=== PATIENT | male | born 1960 | race Caucasian/White ===

== ENCOUNTER 2023-07-25 17:46 | Outpatient (CLI) | payer OTHER, SELFPAY ==
--- NOTE | 2023-07-25 | XR_ITS ---
Patient: SAMIR LANTIGUA Facility:?[facility] Patient ID:?[id number] Site Patient ID:?[id number]. Site :?[id number] Study:?XRay-Head QIANA-07/25/2023 6:01:45 PM Ordering Physician:WICHO Final Report: INDICATION: Possible metal in orbits. Pre MRI. TECHNIQUE: Orbits one view. COMPARISON: None. FINDINGS: No metallic foreign body about the orbits. Multiple dental restorations. Osseous structures as imaged are otherwise unremarkable. Possible right carotid calcifications. Soft tissues elsewhere as imaged are unremarkable. IMPRESSION: No metallic foreign body in the orbits. Dictated by Abe Aleman MD @ 07/25/2023 6:21:47 PM Signed by:?Abe Aleman MD @07/25/2023 6:21:47 PM (Electronic Signature)
--- OUTSIDE RECORDS SUMMARY | 2023-07-25 17:48 | XMS_ITS | Clinical Summary ---
Author Name Unknown Organization [facility] Address [address] [place] [address] Phone [email or web address] Care Team Providers Care Dynamotor Repairer Name Role Phone Jean-Pierre Freeman MD Primary Care Provider [phone] Allergies Active Allergy Reactions Criticality Noted Date Comments Penicillins 03/09/2008 Medications Medication Sig Dispensed Refills Start Date End Date Status olmesartan (BENICAR) 20 MG tabletIndication s:Hypertension, unspecified type Take 1 tablet (20 mg total) by mouth 1 (one) time each day. for blood pressure 90 tablet 06/22/2023 Active tadalafil (CIALIS) 20 MG tabletIndication s:Erectile dysfunction, unspecified erectile dysfunction type Take 0.5 tablets (10 mg total) by mouth 1 (one) time each day if needed for erectile dysfunction. 30 tablet 06/22/2023 Active cholecalciferol (VITAMIN D-3) 250 MCG (72181 UT) capsule Take 10,000 Units by mouth 1 (one) time each day. Take one every other day. Active tadalafil (CIALIS) 20 MG tabletIndication s:Erectile dysfunction, unspecified erectile dysfunction type Take 1 tablet (20 mg total) by mouth 1 (one) time each day if needed for erectile dysfunction. 60 tablet 07/20/2023 4 Active Clomid 50 MG tablet TAKE ONE TABLET BY MOUTH EVERY 2 DAYS FOR CENTRAL HYPOGONADISM 03/18/2022 4 Discontinued tadalafil (CIALIS) 20 MG tabletIndication s:Erectile dysfunction, unspecified erectile dysfunction type Take 1 tablet (20 mg total) by mouth 1 (one) time each day if needed for erectile dysfunction. 30 tablet 07/20/2023 4 Discontinued Active Problems Problem Noted Date Diagnosed Date Class 2 obesity due to exces s calories without serious comorbidity with body mass index (BMI) of 37.0 to 37.9 in adult 06/22/2023 Erectile dysfunction 06/22/2023 Hypogonadism male 06/22/2023 Hypertension 06/22/2023 Ventral hernia without obstruction or gangrene 0 06/22/2023 Encounters Date Type Department Care Team Description 07/20/2023 11:00 AM CDT Telemedicine [employer] [facility] [address] [place] [phone] Beverly Hargrove NP Erectile dysfunction, unspecified erectile dysfunction type (Primary Dx) 07/19/2023 10:15 AM CDT Office Visit [employer] [facility] [address] [place] [phone] Nicole Reyes, OD Combined forms of age-related cataract of both eyes (Primary Dx); Hyperopia of both eyes with astigmatism and presbyopia; Dry eyes 06/26/2023 Orders Only [employer] [facility] [address] [place] [phone] Beverly Hargrove NP 06/22/2023 8:00 AM CDT Office Visit [employer] [facility] [address] [place] [address] Beverly Hargrove NP Encounter for preventative adult health care examination (Primary Dx); Ventral hernia without obstruction or gangrene; Hypertension, unspecified type; Hypogonadism male; Erectile dysfunction, unspecified erectile dysfunction type; Class 2 obesity due to excess calories without serious comorbidity with body mass index (BMI) of 37.0 to 37.9 in adult; Alcohol abuse from Last 3 Months Immunizations Name Administration Dates Next Due Tdap (ADACEL BOOSTRIX) (CVX-[id number]) 12/15/2018,08/18 Family History Medical History Relation Name Comments Cataracts Brother Lauro Other Daughter 1 Kristyn pardo of f allow as Lung disease Daughter 2 Crystal Obesity Daughter 2 Crystal Retinopathy of prematurity Daughter 2 Crystal p oor vision, hx of detatched retina. born at home 3 months early Lung cancer Father Hypertension Maternal Grandfather Obesity Maternal Grandfather Sudden Maternal Grandfather ALS Maternal Grandmother Hypertension Mother Ovarian cancer Mother Obesity Paternal Grandmother Obesity Sister 1 Baylee No Known Problems Sister 2 Tracy No Known Problems Son Александр Glaucoma Neg Hx Macular degeneration Neg Hx Relation Name Status Comments Brother Lauro Alive Older Daughter 1 Kristyn Alive Daughter 2 Crystal Alive Daughter 3 Beatrice Alive Father (Age 67) Maternal Grandfather (Age 66) Maternal Grandmother (Age 75) Mother Paternal Grandfather (Age 40s) Paternal Grandmother (Age 80s) Sister 1 Baylee Alive Older Sister 2 Tracy Alive younger Son Александр Alive Social History Tobacco Use Types Packs/Day Years Used Date Smoking Tobacco: Never Smokeless Tobacco: Never Tobacco Cessation:Counseling Given: Not Answered Alcohol Use Standard Drinks/Week Comments Yes 0 (1 standard drink = 0.6 oz pur e alcohol) 20 drinks per week Alcohol Use Answer Date Recorded Alcohol Use Status Yes 06/22/2023 Depression Answer Date Recorded PHQ Total Score 0 06/22/2023 Sex and Gender Information Value Date Recorded Sex Assigned at Not on file Gender Identity Not on file Sexual Orientation Not on file Last Filed Vital Signs Vital Sign Reading Time Taken Comments Blood Pressure 135/89 06/22/2023 7:53 AM CDT Pulse 69 06/22/2023 7:53 AM CDT Temperature 36.5 ??C (97.7 ??F) 06/22/2023 7:53 AM CD T Respiratory Rate 14 06/22/2023 7:53 AM CDT Oxygen Saturation 95% 06/22/2023 7:53 AM CDT Inhaled Oxygen Concentration - - Weight 110 kg (242 lb) 06/22/2023 7:53 AM CDT Height 170.2 cm (5' 7) 06/22/2023 7:53 AM CDT Body Mass Index 37.9 06/22/2023 7:53 AM CDT Plan of Treatment Health Maintenance Due Date Last Done Comments Influenza Immunization (Season Ended) 2023 Dental Cleaning/Exam 04/05/2024 Postpon ed from 1960 (Awaiting appt) Colorectal Cancer Screening 06/19/2024 06/19/2021 Annual Preventive Exam 06/21/2024 4, 06/22/2023 Covid-19 Immunization (4 - season) 2024 03/04/2021, 07/14/2020, 06/16/2020 Postponed from 11/17/2022 (Member Refused) RSV Immunization >= 60 yrs old (1 - 1-dose 60+ series) 06/21/2024 Postponed fr om 2020 (Member Refused) Zoster Immunization (1 of 2) 06/21/2024 Postponed from 2010 (Member Refused) Tetanus (Tdap or Td) Immunization 12/15/2028 12/15/2018, 09/05/2017 HIV Screening Addressed 09/05/2017 Overridden obdulio h the intention of not completing the topic Hepatitis C Screening Completed 09/05/2017 HIB Immunization Aged Out No longer e ligible based on patient's age to complete this topic HPV Immunization Aged Out No longer e ligible based on patient's age to complete this topic Hep B Infection Screening - Surface Antigen Discontinued Hepatitis A Immunization Aged Out No longer eligible based on patient's age to complete this topic Hepatitis B Immunization Aged Out No longer eligible based on patient's age to complete this topic Pneumococcal: Ped (0 to 5 Yrs) and At-Risk Member (6 to 64 Yrs) Aged Out No longer eligible b ased on patient's age to complete this topic Polio Immunization Aged Out No longer eligible based on patient's age to complete this topic Procedures Procedure Name Priority Date/Time Associated Diagnosis Comments CORTISOL AM Routine 06/22/2023 8:34 AM CDT Hypogonadism male PROLACTIN Routine 06/22/2023 8:34 AM CDT Hypogonadism male FSH AND LH, SERUM Routine 06/22/2023 8:3 4 AM CDT Hypogonadism male TESTOSTERONE TOTAL MALE Routine 06/22/2023 8:34 AM CDT Hypogonadism male VITAMIN D 25 HYDROXY TOTAL Routine 06/22/2023 8:34 AM CDT Encounter for preventative adult health care examination HEMOGLOBIN A1C Routine 06/22/2023 8:34 AM CDT Encounter for preventative adult health care examination COMPREHENSIVE METABOLIC PANEL Routine 06/22/2023 8:34 AM CDT Encounter for preventative adult health care examination CBC Routine 06/22/2023 8:34 AM CDT Encounter for preventative adult health care examination PSA Routine 06/22/2023 8:34 AM CDT Encounter for preventative adult health care examination LIPID PANEL Routine 06/22/2023 8:34 AM CDT Encounter for preventative adult health care examination from Last 3 Months Results * Testosterone Total Male - [facility]/DLS (88085) (06/22/2023 8:34 AM CDT) Testosterone 428 250 - 827 ng/dL [facility] Blood (Blood, Venous) 06/22/2023 8:34 AM CDT 06/23/2023 4:16 AM CDT Beverly Hargrove NP LAB BLOOD ORDERABLES Performing Organization Address City/[facility]/ZIP Co de Phone Number [facility] [address] [place] [address] * FSH and LH, Serum (98049,32720) (06/22/2023 8:34 AM CDT) Follicle Stimulating Hormone 2.5 1.4 - 12.8 mIU/mL [facility] Luteinizing Hormone 4.1 1.6 - 15.2 mIU/mL [facility] Blood (Blood, Venous) 06/22/2023 8:34 AM CDT 06/23/2023 4:16 AM CDT Beverly Hargrove NP LAB BLOOD ORDERABLES [facility] [address] [place] [address] * Cortisol AM (88877) (06/22/2023 8:34 AM CDT) Pathologist [facility] Cortisol - AM 18.7 mcg/dL [facility] Comment: Reference Range 8 a.m. (7-9 a.m.) Specimen: 4.0-22.0 Blood (Blood, Venous) 06/22/2023 8:34 AM CDT 06/23/2023 4:16 AM CDT Beverly Hargrove LOG TRUCK DRIVER LAB BLOOD ORDERABLES [facility] [address] [place] [address] * Vitamin D 25-Hydroxy Total (32438) ([facility] 84924,Katie 647366,DLS 6556) (06/22/2023 8:34 AM CDT) Pathologist [facility] Vit D, 25-Hydroxy 69 30 - 100 ng/mL [facility] Comment: Vitamin D Status ? 25-OH Vitamin D: Deficiency: ?<20 ng/mL Insufficiency: ? 20 - 29 ng/mL Optimal: ? > or = 30 ng/mL For 25-OH Vitamin D testing on patients on D2-supplementation and patients for whom quantitation of D2 and D3 fractions is required, the QuestAssureD() 25-OH VIT D, (D2,D3), LC/MS/MS is recommended: order code 81073 (patients >2yrs). See Note 1 Note 1 For additional information, please refer to http://education.Cloud Engines/faq/XPQ440 (This link is being provided for informational/ educational purposes only.) Blood (Blood, Venous) 06/22/2023 8:34 AM CDT 06/23/2023 4:16 AM CDT Beverly Desirnieves LOG TRUCK DRIVER LAB BLOOD ORDERABLES Performing Organization Address City/[facility] Co de Phone Number [facility] [address] [place] [address] * Prolactin, Serum (83656) (06/22/2023 8:34 AM CDT) Prolactin 9.8 2.0 - 18.0 ng/mL [facility] Blood (Blood, Venous) 06/22/2023 8:34 AM CDT 06/23/2023 4:16 AM CDT Beverly Desirnieves LOG TRUCK DRIVER LAB BLOOD ORDERABLES Performing Organization Address [facility] Co de Phone Number [facility] [address] [place] [address] * CBC Complete blood count without diff (36220) (06/22/2023 8:34 AM CDT) Auto WBC 4.3 3.8 - 10.8 Thousand/uL [facility] RBC 5.11 4.20 - 5.80 Million/uL [facility] Hemoglobin 15.1 13.2 - 17.1 g/dL [facility] Hematocrit 44.7 38.5 - 50.0 % [facility] MCV 87.5 80.0 - 100.0 fL [facility] MCH 29.5 27.0 - 33.0 pg [facility] MCHC 33.8 32.0 - 36.0 g/dL [facility] RDW 13.3 11.0 - 15.0 % [facility] Platelets 253 140 - 400 Thousand/uL [facility] MPV 10.3 7.5 - 12.5 fL [facility] Blood (Blood, Venous) 06/22/2023 8:34 AM CDT 06/23/2023 4:16 AM CDT Beverly Delvin LOG TRUCK DRIVER LAB BLOOD ORDERABLES Performing Organization Address [facility] de Phone Number JACEY [facility] [address] [place] [address] * PSA Prostate Specific Antigen Total (57658) (06/22/2023 8:34 AM CDT) PSA 0.50 < OR = 4.00 ng/mL [facility] Comment: The total PSA value from this assay system is standardized against the WHO standard. The test result will be approximately 20% lower when compared to the equimolar-standardized total PSA ([place]). Comparison of serial PSA results should be interpreted with this fact in mind. This test was performed using the Siemens chemiluminescent method. Values obtained from different assay methods cannot be used interchangeably. PSA levels, regardless of value, should not be interpreted as absolute evidence of the presence or absence of disease. Blood (Blood, Venous) 06/22/2023 8:34 AM CDT 06/23/2023 4:16 AM CDT Beverly Delvin CLARK LAB BLOOD ORDERABLES Performing Organization Address [facility] de Phone Number JACEY [facility] [address] [place] [address] * Hgb A1C Hemoglobin Glycosylated (44059) (06/22/2023 8:34 AM CDT) Hemoglobin A1C 5.4 <5.7 % of total Hgb [facility] Comment: For the purpose of screening for the presence of diabetes: <5.7% ? Consistent with the absence of diabetes 5.7-6.4% ?Consistent with increased risk for diabetes ?(prediabetes) > or =6.5% ??Consistent with diabetes This assay result is consistent with a decreased risk of diabetes. Currently, no consensus exists regarding use of hemoglobin A1c for diagnosis of diabetes in children. According to [place] Diabetes Association (ADA) guidelines, hemoglobin A1c <7.0% represents optimal control in non- diabetic patients. Different metrics may apply to specific patient populations. Standards of Medical Care in Diabetes(ADA). ? This test was performed on the Ros abel c503 platform. Effective 05/23/23, a change in test platforms from the Caba Sand Buffer to the Ros abel c503 may have shifted HbA1c results compared to historical results. Based on laboratory validation testing conducted at [facility], the Ros platform relative to the Caba platform had an average increase in HbA1c value of < or = 0.3%. This difference is within accepted variability established by the National Glycohemoglobin Standardization Program. Note that not all individuals will have had a shift in their results and direct comparisons between historical and current results for testing conducted on different platforms is not recommended. Blood (Blood, Venous) 06/22/2023 8:34 AM CDT 06/23/2023 4:16 AM CDT Beverly Hargrove NP LAB BLOOD ORDERABLES [facility] [address] [place] [address] * (ABNORMAL) Lipid panel (72871) (06/22/2023 8:34 AM CDT) [employer] Signature Cholesterol 252(H) <200 mg/dL [facility] Total HDL-C Direct 74 > OR = 40 mg/dL [facility] Triglycerides 112 <150 mg/dL [facility] LDL Calculated 155(H) mg/dL (calc) [facility] Comment: Reference range: <100 Desirable range <100 mg/dL for primary prevention; ?? <70 mg/dL for patients with CHD or diabetic patients with > or = 2 CHD risk factors. LDL-C is now calculated using the Joanne calculation, which is a validated novel method providing better accuracy than the Friedewald equation in the estimation of LDL-C. Moose ORTIZ et al. ROBERTO. 2013;310(19): 1439-4177 (http://education.Pura Naturals.MValve technologies/faq/MVR663) Chol/HDL Ratio 3.4 <5.0 (calc) [facility] Non HDL Chol. (LDL+VLDL) 178(H) <130 mg/dL (calc) [facility] Comment: For patients with diabetes plus 1 major ASCVD risk factor, treating to a non-HDL-C goal of <100 mg/dL (LDL-C of <70 mg/dL) is considered a therapeutic option. Blood (Blood, Venous) 06/22/2023 8:34 AM CDT 06/23/2023 4:16 AM CDT Beverly Hargrove LOG TRUCK DRIVER LAB BLOOD ORDERABLES [facility] [address] [place] [address] * (ABNORMAL) Comprehensive metabolic panel [facility] (83890) (06/22/2023 8:34 AM CDT) [facility] Glucose 99 65 - 99 mg/dL [facility] Comment: ? Fasting reference interval BUN 14 7 - 25 mg/dL [facility] Creatinine 1.07 0.70 - 1.35 mg/dL [facility] eGFR 78 > OR = 60 mL/min/1. 73m2 [facility] BUN/Creatinine Ratio SEE NOTE: 6 22 (calc) [facility] Comment: ?? Not Reported: BUN and Creatinine are within ?? reference range. ? Sodium 136 135 - 146 mmol/L [facility] Potassium 4.2 3.5 - 5.3 mmol/L [facility] Chloride 99 98 - 110 mmol/L [facility] CO2 30 20 - 32 mmol/L [facility] Calcium 10.3 8.6 - 10.3 mg/dL [facility] Total Protein 7.2 6.1 - 8.1 g/dL [facility] Albumin 4.7 3.6 - 5.1 g/dL [facility] Globulin, Total 2.5 1.9 - 3.7 g/dL (calc) [facility] A/G Ratio 1.9 1.0 - 2.5 (calc) [facility] Total Bilirubin 0.6 0.2 - 1.2 mg/dL [facility] Alkaline Phosphatase 32(L) 35 - 144 U/L [facility] AST 34 10 - 35 U/L [facility] ALT (SGPT) 21 9 - 46 U/L [facility] Blood (Blood, Venous) 06/22/2023 8:34 AM CDT 06/23/2023 4:16 AM CDT Beverly Hargrove LOG TRUCK DRIVER LAB BLOOD ORDERABLES [facility] [address] [place] [address] from Last 3 Months Care Teams Dynamotor Repairer Relationship Specialty Start Date End Date Jean-Pierre Freeman MD [address] [place] [phone] PCP - General Family Medicine 07/19/23
--- OUTSIDE RECORDS SUMMARY | 2023-07-25 17:48 | XMS_ITS | Encounter Summary ---
Author Name Unknown Organization [facility] Address [address] [place], [place] [id number] Phone [email or web address] Care Team Providers Care Naval Aircrewman Mechanical Name Role Phone Jean-Pierre Freeman MD Primary Care Provider [phone] Reason for Referral * Consultation (Routine) - Closed Specialty Diagnoses / Procedures Referred By Marlene pickett Referred To Contact Optometry / Vision Diagnoses Hyperopia of both eyes with astigmatism and presbyopia Procedures Vendor Referral to Optometry Nicole Reyes, OD [address] [place] [address] Nicole Reyes, OD [address] [place] [address] Referral ID Status Reason Start Date Expiration Date V isits Requested Visits Authorized [id number] Closed Consult & Treat 07/19/2023 01/15/2024 1 1 Reason for Visit * Reason Comments Eye Exam Encounter Details Date Type Department Care Team (Late st Contact Info) Description 07/19/2023 10:15 AM CDT [facility] [address] [place] [address] Nicole Reyes, OD [address] [place] [address] Combined forms of age-related cataract of both eyes (Primary Dx); Hyperopia of both eyes with astigmatism and presbyopia; Dry eyes Social History Tobacco Use Types Packs/Day Years Used Date Smoking Tobacco: Never Smokeless Tobacco: Never Alcohol Use Standard Drinks/Week Comments Yes 0 (1 standard drink = 0.6 oz pur e alcohol) 20 drinks per week Alcohol Use Answer Date Recorded Alcohol Use Status Yes 06/22/2023 Depression Answer Date Recorded PHQ Total Score 0 06/22/2023 Sex and Gender Information Value Date Recorded Sex Assigned at Not on file Gender Identity Not on file Sexual Orientation Not on file documented as of this encounter Progress Notes * Nicole Reyes, OD - 07/19/2023 10:15 AM CDT Subjective: Venkata Huynh is a 63 y.o. male. Chief Complaint Eye Exam HPI Eye Exam In both eyes. Comments Mild blur at distance, with glasses, x 1 year. Scratchy eyes, intermittent, it has been happening for a long time, more ioften in the morning. Last edited by Nicole Reyes, BRIANNA on 07/19/2023 10:35 AM. ROS Positive for: Eyes Negative for: Constitutional, Gastrointestinal, Neurological, Skin, Genitourinary, Musculoskeletal,HENT, Endocrine, Cardiovascular, Respiratory, Psychiatric, Allergic/Imm, Heme/Lymph Last edited by Nicole Reyes, BRIANNA on 07/19/2023 10:35 AM. Visual Acuity Visual Acuity (Snellen - Linear) Right Left Dist cc 20/20 20/30 -2 Correction: Glasses Pupils Pupils Pupils APD Right PERRL None Left PERRL None Extraocular Movement Extraocular Movement Right Left Full, Ortho Full, Ortho Confrontational Visual Marti Visual Marti (Counting fingers) Left Right Full Full Tonometry Tonometry (Applanation, 10:33 AM) Right Left Pressure 18 18 Wearing Rx Wearing Rx Sphere Cylinder [place] Add Right +1.50 -0.75 095 +2.50 Left +1.25 -0.50 050 +2.50 Manifest Refraction Manifest Refraction Sphere Cylinder [place] Dist VA Add Near VA Right +1.75 -0.50 115 20/20-2 +2.50 J1+ Left +1.50 -0.50 045 20/25 +2.50 J1+ Eyeglass Final Rx Eyeglass Final Rx Sphere Cylinder [place] Dist VA Add Near VA Right +1.75 -0.50 115 20/20-2 +2.50 J1+ Left +1.50 -0.50 045 20/25 +2.50 J1+ Expiration Date: 07/18/2025 Dilation Dilation Deferred DFE, performed optomap today Main Ophthalmology Exam External Exam Right Left External Normal Normal Slit Lamp Exam Right Left Lids/Lashes Normal Normal Conjunctiva/Sclera White and quiet White and quiet Cornea Clear Clear Anterior Chamber Deep and quiet Deep and quiet Iris Round and reactive Round and reactive Lens 2+ Cortical cataract, 1+ Nuclear sclerosis 2+ Cortical cataract, 1+ Nuclear sclerosis Anterior Vitreous Normal Normal Fundus Exam Right Left Disc Normal Normal C/D Ratio 0.3 0.3 Macula Flat and Intact Flat and Intact Vessels Normal Normal Periphery Normal Normal <div [email or web address]></div> Mack was seen today for eye exam. Diagnoses and all orders for this visit: Combined forms of age-related cataract of both eyes (Primary) Hyperopia of both eyes with astigmatism and presbyopia Dry eyes Ed on findings and nature of cataracts. Based on mild nature of cataract, but discussed symptoms ofcataracts. Continue to monitor annually. Ed pt on all exam findings, nature of findings. Discussed adaptation to Rx. Glasses Rx released forfull time wear. RTC 1 year CEE. Ed pt on all exam findings, nature of findings. Recommend use of artificial tears as needed in botheyes. Recommend Systane Ultra. Monitor, RTC 1 year CEE, or sooner as needed. Return in about 1 year (around 07/18/2024), or if symptoms worsen or fail to improve, for Eye exam. Nicole Reyes OD documented in this encounter Plan of Treatment Not on file documented as of this encounter Visit Diagnoses Diagnosis Combined forms of age-related cataract of both eyes- Primary Hyperopia of both eyes with astigmatism and presbyopia Dry eyes Unspecified tear film insufficiency documented in this encounter Care Teams [employer] Mechanical Relationship Specialty Start Date End Date Jean-Pierre Freeman MD [address] [place] [address] PCP - General Family Medicine 07/19/23 documented as of this encounter
--- OUTSIDE RECORDS SUMMARY | 2023-07-25 17:48 | XMS_ITS | Encounter Summary ---
Author Name Unknown Organization [facility] Address [address] [place] [address] Phone [email or web address] Care Team Providers Care Maintenance Planner Name Role Phone Golden Pfeiffer MD Primary Care Provider Darvina ble Encounter Details Date Type Department Care Team (Late st Contact Info) Description 06/26/2023 Orders Only [employer] [facility] [place] [address] [facility] [address] [place] [address] Beverly Hargrove, CREATIVE SERVICES COORDINATOR [address] [place] [address] Social History Tobacco Use Types Packs/Day Years [...] on file documented as of this encounter Plan of Treatment Not on file documented as of this encounter Visit Diagnoses Not on filedocumented in this encounter Care Teams Maintenance Planner Relationship Specialty [place] [address] PCP - General General Surgery 06/08/23 07/18/23 documented as of this encounter
--- OUTSIDE RECORDS SUMMARY | 2023-07-25 17:48 | XMS_ITS | Encounter Summary ---
Author Name Unknown Organization [facility] Address [address] [place], [place] [id number] Phone [email or web address] Care Team Providers Care Elementary Special Education Teacher Name Role Phone Golden Pfeiffer MD Primary Care Provider Unavaila ble Reason for Visit * Reason Comments Annual Physical Exam Encounter Details Date Type Department Care Team (Late st Contact Info) Description 06/22/2023 8:00 AM CDT Office Visit [facility] [place] [facility] [place] [address] [place] [address] Beverly Hargrove NP [address] [place] [address] Encounter for preventative adult health care examination (Primary Dx); Ventral hernia without obstruction or gangrene; Hypertension, unspecified type; Hypogonadism male; Erectile dysfunction, unspecified erectile dysfunction type; Class 2 obesity due to excess calories without serious comorbidity with body mass index (BMI) of 37.0 to 37.9 in adult; Alcohol abuse Social History Tobacco Use Types Packs/Day Years [...] on file documented as of this encounter Last Filed Vital Signs Vital Sign Reading [...] Mass Index 37.9 06/22/2023 7:53 AM CDT documented in this encounter Patient Instructions * Patient Instructions* Beverly Hargrove NP - 06/22/2023 8:00 AM CDT Cut back on daily alcohol, this is likely related to weight gain. And if you cut back this will help you lose weight. Return in 3 months for med check Do phone visit in a month if cialis 10 mg before intercourse is not helping documented in this encounter Progress Notes * Beverly Hargrove NP - 06/22/2023 8:00 AM CDT Subjective Venkata Huynh is a 63 y.o. male and is here for a comprehensive physical exam. The patient reports no problems. Vit D: takes 10,000 maybe every other day Nutrition: normal diet. Grilling will add salt. Eats a lot of cheese Exercise: not as much as he wants. Usually walks when he can. Is building a shed right now. Smoking: no Alcohol: daily usually 4-5 beers Colon screening: did cologuard in the past Do you take any herbs or supplements that were not prescribed by a doctor? yes Are you taking calcium supplements? no Are you taking aspirin daily? no History: Date last PSA: 1.5 year ago No urinary issues The following portions of the patient's chart were reviewed in this encounter and updated as appropriate: Tobacco Allergies Meds Problems Med Hx Surg Hx Fam Hx Review of Systems Do you have pain that bothers you in your daily life? yes Joints, knows he has arthritis in his joints. Should pain Pertinent items are noted in HPI.. Objective Visit Vitals BP 135/89 (BP Location: Right arm, Patient Position: Sitting, BP Cuff Size: Large adult) Pulse 69 Temp 97.7 ??F Resp 14 Ht 5' 7 Wt 242 lb SpO2 95% BMI 37.90 kg/m?? Smoking Status Never BSA 2.28 m?? General Appearance: Alert, cooperative, no distress, appears stated age Head: Normocephalic, without obvious abnormality, atraumatic Eyes: PERRL, conjunctiva/corneas clear Ears: Normal TM's and external ear canals, both ears Nose: Nares normal, septum midline, mucosa normal Throat: Lips, mucosa, and tongue normal; teeth and gums normal Neck: Supple, symmetrical, trachea midline, no adenopathy; thyroid: No enlargement/tenderness/nodules Lungs: Clear to auscultation bilaterally, respirations unlabored Chest wall: No tenderness or deformity Heart: Regular rate and rhythm, S1 and S2 normal, no murmur, rub or gallop Abdomen: Soft, non-tender, bowel sounds active all four quadrants, no masses, no organomegaly. Vental hernia noted, non-tender Extremities: Extremities normal, atraumatic, no cyanosis or edema Skin: Skin color, texture, turgor normal, no rashes or lesions Lymph nodes: Cervical, supraclavicular, and axillary nodes normal Neurologic: CNII-XII intact. Normal strength, sensation . Assessment/Plan Healthy male exam. 1. Encounter for preventative adult health care examination Labs pending, no concerns today. Does cologuard, last done 1-1.5 years ago. - Lipid panel (84154) - PSA Prostate Specific Antigen Total (78487) - CBC Complete blood count without diff (92475) - Comprehensive metabolic panel CMP (09725) - Hgb A1C Hemoglobin Glycosylated (09330) - Vitamin D 25-Hydroxy Total (76603) (Quest 05075,Katie [id number],DLS 6556) 2. Ventral hernia without obstruction or gangrene Noted today during physical, he was not aware of it. No pain. Offered PT to help with core exercises. He declined 3. Hypertension, unspecified type BP is okay, monitor for now, return in 3 months for med check. Refill given today - olmesartan (BENICAR) 20 MG tablet; Take 1 tablet (20 mg total) by mouth 1 (one) time each day. for blood pressure Dispense: 90 tablet; Refill: 0 4. Hypogonadism male Would like to get back on clomid, will check labs today to determine if that is appropriate or not - Testosterone Total Male - Quest/DLS (79885) - FSH and LH, Serum (26777,72223) - Prolactin, Serum (82434) - Cortisol AM (90139) 5. Erectile dysfunction, unspecified erectile dysfunction type Didn't feel 5 mg daily was helping. Will trial 10 mg before intercourse. If not working make phone visit in a month - tadalafil (CIALIS) 20 MG tablet; Take 0.5 tablets (10 mg total) by mouth 1 (one) time each day ifneeded for erectile dysfunction. Dispense: 30 tablet; Refill: 0 6. Class 2 obesity due to excess calories without serious comorbidity with body mass index (BMI) of37.0 to 37.9 in adult Declined obesity help via [facility]. He states he knows what he needs to do 7. Alcohol abuse Drinks daily, 4-5 beers a day, needs to work on cutting back, this is likely related to weight gain 1. As above 2. Patient Counseling: --Nutrition: Stressed importance of moderation in sodium/caffeine intake, saturated fat and cholesterol, caloric balance, sufficient intake of fresh fruits, vegetables, fiber, calcium, iron, and 1 mgof folate supplement per day (for females capable of ). --Exercise: Stressed the importance of regular exercise. --Injury prevention: Discussed safety belts, safety helmets, smoke detector, smoking near bedding or upholstery. --Dental health: Discussed importance of regular tooth brushing, flossing, and dental visits. --Immunizations reviewed. --Discussed benefits of screening colonoscopy-he does cologuard. --After hours service discussed with patient 3. Discussed the patient's BMI with him. The BMI above average, declines referral 4. Follow up 3 months . Best Practice Advisory Action: BMI Counseling Follow-up plan has been discussed and documented for this member. * Uziel Mccauley MA - 06/22/2023 8:00 AM CDT Venkata Huynh is a 63 y.o. male presents to the [facility] 06/22/2023 for Fasting lab work orderedby [facility] provider . Labs drawn via left arm using butterfly 21 gauge needle on the first attempt without difficulty. Manual pressure applied to site upon completion of venipuncture without any bleeding, Coban appliedover site. Patient tolerated lab procedure well: Yes. * Beverly Hargrove NP - 06/22/2023 8:00 AM CDT Stephen Freeman, I checked some labs as the patient wanted to consider getting back on clomid. It looks like things are stable but wanted to get your opinion. Thank you, DANGELO Watkins [employer] * Beverly Hargrove NP - 06/22/2023 8:00 AM CDT Stephen Hastings, I consulted with the physician I work with and at this time we do not feel you need the clomid. Your testosterone and hormone levels are stable. Cutting significantly back on the daily beer consumption would actually help improve your testosterone levels. This would also help with weight loss. Your cholesterol is elevated, total is 252, we want that less than 200, and LDL, bad cholesterol is155. I recommend retesting this in 3 months, if not improved then I would recommend starting treatment for high cholesterol. Weight loss, and less beer will also help with this. The rest of your labsare good. Please let me know if you need a referral for assistance in cutting back on alcohol. Please let me know if you have any other questions. Thank you, DANGELO Watkins [employer] * Beverly Hargrove NP - 06/22/2023 8:00 AM CDT Stephen Hastings Cortisol is normal. Thank you, DANGELO Watkins [employer] documented in this encounter Plan of Treatment Not on file documented as of this encounter Procedures Procedure Name Priority Date/Time Associated Diagnosis Comments TESTOSTERONE TOTAL MALE Routine 06/22/2023 8:34 AM CDT Hypogonadism male FSH AND LH, SERUM Routine 06/22/2023 8:3 4 AM CDT Hypogonadism male CORTISOL AM Routine 06/22/2023 8:34 AM CDT Hypogonadism male VITAMIN D 25 HYDROXY TOTAL Routine 06/22/2023 8:34 AM CDT Encounter for preventative adult health care examination PROLACTIN Routine 06/22/2023 8:34 AM CDT Hypogonadism male CBC Routine 06/22/2023 8:34 AM CDT Encounter [...] Encounter for preventative adult health care examination documented in this encounter Results * Cortisol AM (96367) (06/22/2023 8:34 AM CDT) [facility] Cortisol - AM 18.7 mcg/dL [employer] Douglass Comment: Reference Range 8 a.m. (7-9 a.m.) Specimen: 4.0-22.0 Blood (Blood, Venous) 06/22/2023 8:34 AM CDT 06/23/2023 4:16 AM CDT Beverly Desirnieves BUCKLE SORTER LAB BLOOD ORDERABLES Performing Organization Address City/[facility]/ZIP Co de Phone Number [email or web address] [facility] [address] [place] [address] * Prolactin, Serum (98643) (06/22/2023 8:34 AM CDT) Prolactin 9.8 2.0 - 18.0 ng/mL [facility] Blood (Blood, Venous) 06/22/2023 8:34 AM CDT 06/23/2023 4:16 AM CDT Beverlyloren Desirnieves BUCKLE SORTER LAB BLOOD ORDERABLES Performing Organization Address [facility] Co de Phone Number [employer] [facility] [address] [place] [address] * FSH and LH, Serum (21582,24645) (06/22/2023 8:34 AM CDT) Follicle Stimulating Hormone 2.5 1.4 - 12.8 mIU/mL [facility] Luteinizing Hormone 4.1 1.6 - 15.2 mIU/mL [facility] Blood (Blood, Venous) 06/22/2023 8:34 AM CDT 06/23/2023 4:16 AM CDT Beverly Desirnieves BUCKLE SORTER LAB BLOOD ORDERABLES Performing Organization Address City/[facility]/ZIP Co de Phone Number [facility] [address] [place] [address] * Testosterone Total Male - [facility]/DLS (59488) (06/22/2023 8:34 AM CDT) Testosterone 428 250 - 827 ng/dL [facility] Blood (Blood, Venous) 06/22/2023 8:34 AM CDT 06/23/2023 4:16 AM CDT Beverly Hargrove BUCKLE SORTER LAB BLOOD ORDERABLES Performing Organization Address [facility] Co de Phone Number AMKAIAlli Douglass [address] [place] [address] * Vitamin D 25-Hydroxy Total (62905) (Quest 42642,[place] 274416,DLS 6556) (06/22/2023 8:34 AM CDT) Vit D, 25-Hydroxy 69 30 - 100 ng/mL [employer] marlo Douglass Comment: Vitamin D Status ? 25-OH Vitamin D: Deficiency: ?<20 ng/mL Insufficiency: ? 20 - 29 ng/mL Optimal: ? > or = 30 ng/mL For 25-OH Vitamin D testing on patients on D2-supplementation and patients for whom quantitation of D2 and D3 fractions is required, the QuestAssureD(TM) 25-OH VIT D, (D2,D3), LC/MS/MS is recommended: order code 48491 (patients >2yrs). See Note 1 Note 1 For additional information, please refer to http://education.[employer]/faq/BIH639 (This link is being provided for informational/ educational purposes only.) Blood (Blood, Venous) 06/22/2023 8:34 AM CDT 06/23/2023 4:16 AM CDT Beverly Hargrove BUCKLE SORTER LAB BLOOD ORDERABLES Performing Organization Address [facility]/ZIP Co de Phone Number AMKAIAlli Douglass [address] [place] [address] * Hgb A1C Hemoglobin Glycosylated (26184) (06/22/2023 8:34 AM CDT) Hemoglobin A1C 5.4 <5.7 % of total Hgb [employer] marlo Douglass Comment: For the purpose of screening for the presence of diabetes: <5.7% ? Consistent with the absence of diabetes 5.7-6.4% ?Consistent with increased risk for diabetes ?(prediabetes) > or =6.5% ??Consistent with diabetes This assay result is consistent with a decreased risk of diabetes. Currently, no consensus exists regarding use of hemoglobin A1c for diagnosis of diabetes in children. According to [place] Diabetes Association (ADA) guidelines, hemoglobin A1c <7.0% represents optimal control in non- diabetic patients. Different metrics may apply to specific patient populations. Standards of Medical Care in Diabetes(ADA). ? This test was performed on the Ros abel c503 platform. Effective 05/23/23, a change in test platforms from the [facility] Counselor to the Ros abel c503 may have shifted HbA1c results compared to historical results. Based on laboratory validation testing conducted at [employer], the Ros platform relative to the Caba [...] CDT Beverly Hargrove NP LAB BLOOD ORDERABLES [facility] [address] [place] [address] * (ABNORMAL) Comprehensive metabolic panel CMP (20115) (06/22/2023 8:34 AM CDT) [facility] Signature Glucose 99 65 - 99 mg/dL [employer] [employer] marlo Douglass Comment: ? Fasting reference interval BUN 14 7 - 25 mg/dL [employer] ojames Douglass Creatinine 1.07 0.70 - 1.35 mg/dL [employer] [employer] ojames Douglass eGFR 78 > OR = 60 mL/min/1. 73m2 [employer] ojames Rafat BUN/Creatinine Ratio SEE NOTE: (calc) [facility] Comment: ?? Not Reported: BUN and Creatinine [...] CDT 06/23/2023 4:16 AM CDT Beverly Hargrove BUCKLE SORTER LAB BLOOD ORDERABLES [facility]i Douglass [address] [place] [address] * CBC Complete blood count without diff (44557) (06/22/2023 8:34 AM CDT) Auto WBC 4.3 3.8 - 10.8 Thousand/uL [facility] RBC 5.11 4.20 - 5.80 Million/uL [facility] Hemoglobin 15.1 13.2 - 17.1 g/dL [facility] Hematocrit 44.7 38.5 - 50.0 % [facility] jonahton Rafat MCV 87.5 80.0 - 100.0 fL [facility] jonathon [place]e MCH 29.5 27.0 - 33.0 pg [facility] MCHC 33.8 32.0 - 36.0 g/dL [facility] jonathon [place]ciae RDW 13.3 11.0 - 15.0 % [facility] j[facility] Rafat Platelets 253 140 - 400 Thousand/uL [facility] j[facility] Rafat MPV 10.3 7.5 - 12.5 fL [facility] Blood (Blood, Venous) 06/22/2023 8:34 AM CDT 06/23/2023 4:16 AM CDT Beverly Hargrove NP LAB BLOOD ORDERABLES Performing Organization Address [facility] Co de Phone Number [facility] [address] [place] [address] * PSA Prostate Specific Antigen Total (94973) (06/22/2023 8:34 AM CDT) PSA 0.50 < OR = 4.00 ng/mL Jacey CalmSeaManish Douglass Comment: The total PSA value from this assay system is standardized against the WHO standard. The test result will be approximately 20% lower when compared to the equimolar-standardized total PSA ([facility]). Comparison of serial PSA results should be [...] NP LAB BLOOD ORDERABLES Performing Organization Address [facility] Co de Phone Number [facility] [address] [place] [address] * (ABNORMAL) Lipid panel (44914) (06/22/2023 8:34 AM CDT) Cholesterol 252(H) <200 mg/dL [employer] Total HDL-C Direct 74 > OR = 40 mg/dL [employer] Triglycerides 112 <150 mg/dL [employer] [facility]W marlo Douglass LDL Calculated 155(H) mg/dL (calc) [employer] Douglass Comment: Reference range: <100 Desirable range <100 mg/dL for primary prevention; ?? <70 mg/dL for patients with CHD or diabetic patients with > or = 2 CHD risk factors. LDL-C is now calculated using the Joanne calculation, which is a validated novel method providing better accuracy than the Friedewald equation in the estimation of LDL-C. Moose ORTIZ et al. ROBERTO. 2013;310(19): 4159-0762 (http://education.[employer]/faq/SCE783) Chol/HDL Ratio 3.4 <5.0 (calc) [employer] [facility] Doug[facility] Non HDL Chol. (LDL+VLDL) 178(H) <130 mg/dL (calc) [employer] Douglass Comment: For patients with diabetes plus 1 major ASCVD risk factor, treating to a non-HDL-C goal of <100 mg/dL (LDL-C of <70 mg/dL) is considered a therapeutic option. Blood (Blood, Venous) 06/22/2023 8:34 AM CDT 06/23/2023 4:16 AM CDT Beverly Hargrove NP LAB BLOOD ORDERABLES [facility] [address] [place] [address] documented in this encounter Visit Diagnoses Diagnosis Encounter for preventative adult health care examination- Primary Ventral hernia without obstruction or gangrene Unspecified ventral hernia without mention of obstruction or gangrene Hypertension, unspecified type Hypogonadism male Other testicular hypofunction Erectile dysfunction, unspecified erectile dysfunction type Class 2 obesity due to excess calories without serious comorbidity with body mass index (BMI) of 37.0 to 37.9 in adult Alcohol abuse Nondependent alcohol abuse, unspecified drinking behavior documented in this encounter Care Teams Elementary Special Education Teacher Relationship Specialty Start Date End Date Golden Pfeiffer MD, [place] [address] PCP - General General Surgery 06/08/23 07/18/23 documented as of this encounter
--- OUTSIDE RECORDS SUMMARY | 2023-07-25 17:48 | XMS_ITS | Encounter Summary ---
Author Name Unknown Organization [facility] Address [address] [place], [place] [address] Phone [email or web address] Care Team Providers Care Retirement Officer Name Role Phone Jean-Pierre Freeman MD Primary Care Provider [phone] Reason for Visit * Reason Comments Genital / Male Issue Follow up on Cialis . Encounter Details Date Type Department Care Team (Late st Contact Info) Description 07/20/2023 11:00 AM CDT Telemedicine [facility] [place] [facility] [place] [address] [place] [address] Beverly Hargrove NP [address] [place] [address] Erectile dysfunction, unspecified erectile dysfunction type (Primary Dx) Social History Tobacco Use Types Packs/Day Years [...] as of this encounter Progress Notes * Beverly Hargrove NP - 07/20/2023 11:00 AM CDT Local Virtual Health Note Provider location: [place] [email or web address] Member [facility] they are currently in the [facility] Member [facility] they are an employee of [employer]. Subjective: Venkata Huynh is a 63 y.o. male requesting a telephonic visit. Chief Complaint: Chief Complaint Patient presents with Genital / Male Issue Follow up on Cialis. History Reviewed: The following portions of the member's chart were reviewed during this encounter and updated as appropriate: HPI Had quit taking cialis for a long time. This time the 10 mg dose is working okay. Worked about 2.5 hr later, sometimes 30 minutes. The viagra worked but then he wasn't sure when it would kick in. Even when he used to get dental work the novicaine would kick in at a later time. He might just be a slower metabolizer which may be why the medication on-sent is variable. Review of Systems Objective: Physical Exam Assessment/Plan: Diagnoses and all orders for this visit: Erectile dysfunction, unspecified erectile dysfunction type - tadalafil (CIALIS) 20 MG tablet; Take 1 tablet (20 mg total) by mouth 1 (one) time each day if needed for erectile dysfunction. Refill for cialis done. Due for med check in 3 months If he wants sent to different pharmacy it is okay. He will follow up virtually in 3 months, then inperson 3 months after that Amount of time spent with member: 10min Beverly Hargrove NP-[facility] documented in this encounter Plan of Treatment Not on file documented as of this encounter Visit Diagnoses Diagnosis Erectile dysfunction, unspecified erectile dysfunction type- Primary documented in this encounter Care Teams Retirement Officer Relationship Specialty Start Date End Date Jean-Pierre Freeman MD [address] [place] [phone] PCP - General Family Medicine 07/19/23 documented as of this encounter
--- OUTSIDE RECORDS SUMMARY | 2023-07-25 17:48 | XMS_ITS | Clinical Summary ---
Author Name Unknown Organization [employer] [facility] Address [place], [place] [address] Care Team Providers Care Crisis Intervention Counselor Name Role Phone Almaz Lauren Primary Primary Care Provider Unavailabl e Allergies Active Allergy Reactions Criticality Noted Date Comments Penicillins 03/09/2008 Medications No known medications Social History Tobacco Use Types Packs/Day Years Used Date Smoking Tobacco: Never Alcohol Use Standard Drinks/Week Comments Yes 3.3 (1 standard drink = 0.6 oz p ure alcohol) Sex and Gender Information Value Date Recorded Sex Assigned at Not on file Gender Identity Not on file Sexual Orientation Not on file Obstetrics History Plan of Treatment Health Maintenance Due Date Last Done Comments Tdap 1971 Depression screening for age 12+ 1972 HIV for age 15-65 1975 BMI (ht and wt on same day) for age 18+ 1978 Hepatitis C screening for ag e 18-79 1978 Tetanus booster 1980 Colonoscopy through age 75 2005 Lipids for age 45-75 2005 Zoster (shingles) series for age 50+ (1 of 2) 2010 COVID-19 vaccine series (2022-24 season) 2022 Influenza for age 50-64 11/18/2023 Pneumococcal series for age 6-64 Aged Out No longer eligible based on patient's age to complete this topic Care Teams Crisis Intervention Counselor Relationship Specialty Start Date End Date , No Primary . PCP - General 04/04/10
--- NOTE | 2023-07-25 18:15 | MR_ITS ---
Patient: SAMIR LANTIGUA Facility:?[facility] Patient ID:?[id number] Site Patient ID:?[id number]. Site :?[id number] Study:?MRI-Knee Left W/O-07/25/2023 6:37:00 PM Ordering Physician:?SARA VILLANUEVA MD Final Report: ----- ADDENDUM ----- EXAM: MRI OF THE LEFT KNEE, WITHOUT CONTRAST CLINICAL INDICATION: Knee pain and swelling. Evaluate for meniscal injury. COMPARISON PLAIN FILMS: None available at time of interpretation. COMPARISON CROSS-SECTIONAL IMAGING STUDIES: None available at time of interpretation. TECHNICAL: Axial, sagittal and coronal T1, PD, PD FS and T2 FS images. Knee coil. FINDINGS: MEDIAL COMPARTMENT: Medial Meniscus: Normal size and morphology without tear. Articular Cartilage: Mild fraying centrally in the medial femoral condyle (grade 2). - LATERAL COMPARTMENT: Lateral Meniscus: Normal size and morphology without tear. Articular Cartilage: Focal full-thickness chondral fissure in the far posterior aspect of the tibia measures 0.9 cm RL and 0.1 cm in thickness. Mild fissuring centrally (grade 2). - PATELLOFEMORAL COMPARTMENT: Articular Cartilage: Moderate fraying and thinning in the medial patellar facet and patellar apex (grade 3). - CRUCIATE LIGAMENTS: Anterior Cruciate Ligament: Acute tear of the proximal ACL. Posterior Cruciate Ligament: Normal. - MEDIAL COLLATERAL LIGAMENT AND POSTEROMEDIAL CORNER COMPLEX: Medial Collateral Ligament: Low-grade partial-thickness tear of the proximal anterior margin of the MCL. Medial Head of the Gastrocnemius and Semimembranosus Tendons: Normal. - LATERAL COLLATERAL LIGAMENT COMPLEX AND POSTEROLATERAL CORNER COMPLEX: Fibular Collateral Ligament: Normal. Distal Biceps Femoris Tendon Complex: Normal. Iliotibial Band: Normal. Popliteus Tendon: Normal. Posterolateral Corner Capsule: Normal. - EXTENSOR MECHANISM: Distal Quadriceps Tendon: Normal. Patellar Tendon: Normal. Medial Patellar Retinaculum and Medial Patellofemoral Ligament: Normal. Lateral Patellar Retinaculum: Normal. Normal patellar alignment. No patella lebron. Normal trochlear depth. Normal lateral trochlear inclination. - JOINT SPACE: Effusion: Large knee joint effusion. No popliteal cyst. Joint Bodies: None seen. - OSSEOUS STRUCTURES: Small nondisplaced subchondral fracture in the far posterior aspect of the lateral tibia measures 1.0 cm RL x 1.0 cm CC x 0.5 cm AP. Findings consistent with a pattern of ACL insufficiency. - PERIARTICULAR SOFT TISSUES: Periarticular Cysts or Ganglia: None. Bursae: No prepatellar, superficial infrapatellar, deep infrapatellar, pes anserinus or semimembranosus/MCL bursitis. Musculature: No muscle atrophy or muscle edema. Subcutaneous and Soft Tissues: Diffuse subcutaneous edema more prominent anteriorly. Neurovascular Structures: Normal. IMPRESSION: 1. Acute ACL tear. 2. Small full-thickness chondral fissure posteriorly in the lateral tibia with small nondisplaced posterior subchondral fracture in a pattern consistent with ACL insufficiency. 3. Low-grade partial-thickness tear of the proximal MCL. 4. Mild chondromalacia in the medial and lateral compartments. 5. Moderate chondromalacia in the patella. 6. Large knee joint effusion. 7. Subcutaneous edema. Dictated by Jorge Zuniga MD @ Jul 26 2023 11:44AM Signed by:?Jorge Zuniga MD @07/31/2023 9:32:09 AM (Electronic Signature)
== END 2023-07-25 17:47 | disposition home or self-care (01) ==
LOC: MRI 17:47
PROVIDERS: PCP Internal Medicine; Visit Provider Internal Medicine
DX: M25.562 Pain in left knee (principal); S83.512A Sprain of anterior cruciate ligament of left knee, initial encounter; S83.412A Sprain of medial collateral ligament of left knee, initial encounter; M22.42 Chondromalacia patellae, left knee; M25.462 Effusion, left knee
CPT/HCPCS: 70030; 73721

== ENCOUNTER 2023-08-22 06:01 | Day surgery (SDC) | payer OTHER, SELFPAY ==
[2023-08-22] VITALS (19 sets, daily range): BP systolic 100–134; BP diastolic 71–98; PULSE 60–80; RESP 16; TEMP 35.8–36.7; O2SAT 92–98; BMI 35.5
--- OUTSIDE RECORDS SUMMARY | 2023-08-22 06:03 | XMS_ITS | Clinical Summary ---
Author Organization [facility] Address [place], [place] [address] Care Team Providers Care Beverage Steward Name Role Phone Almaz Lauren Primary Primary [...] (1 of 2) 2010 COVID-19 vaccine series ( season) 2022 Influenza for age 50-64 11/18/2023 Pneumococcal series for age 6-64 Aged Out No longer eligible based on patient's age to complete this topic Care Teams Beverage Steward Relationship Specialty Start Date End Date , No Primary . PCP - General 04/04/10
--- OUTSIDE RECORDS SUMMARY | 2023-08-22 06:03 | XMS_ITS | Clinical Summary ---
Author Organization [facility] Address [address] [place] [id number] Phone [email or web address] Care Team Providers Care Music Composition Teacher Name Role Phone Jean-Pierre Freeman MD Primary Care Provider [phone] Allergies Active Allergy Reactions Criticality Noted Date Comments Penicillins 03/09/2008 Medications Medication Sig Dispensed Refills Start Date End Date Status olmesartan (BENICAR) 20 MG tabletIndications:Hyp ertension, unspecified type Take 1 tablet (20 mg total) by mouth 1 (one) time each day. for blood pressure 90 tablet 06/22/2023 Active tadalafil (CIALIS) 20 MG tabletIndications:Ere ctile dysfunction, unspecified erectile dysfunction type Take 0.5 tablets (10 mg total) by mouth 1 (one) time each day if needed for erectile dysfunction. 30 tablet 06/22/2023 Active cholecalciferol (VITAMIN D-3) 250 MCG (94914 UT) capsule Take 10,000 Units by mouth 1 (one) time each day. Take one every other day. Active tadalafil (CIALIS) 20 MG tabletIndications:Ere ctile dysfunction, unspecified erectile dysfunction type Take 1 tablet (20 mg total) by mouth 1 (one) time each day if needed for erectile dysfunction. 60 tablet 07/20/2023 Active Active Problems Problem Noted Date Diagnosed Date Class 2 obesity due to exces s calories without serious comorbidity with body mass index (BMI) of 37.0 to 37.9 in adult 06/22/2023 Erectile dysfunction 06/22/2023 Hypogonadism male 06/22/2023 Hypertension 06/22/2023 Ventral hernia without obstruction or gangrene 0 06/22/2023 Encounters Date Type Department Care Team Description 08/14/2023 10:30 AM CDT Treatment [facility] [place] [address] [place] [address] Sytsma, Anselmo, PT Acute pain of left knee (Primary Dx); Abnormality of gait and mobility 08/09/2023 8:15 AM CDT Treatment [facility] [facility] [place] [address] [place] [address] Sytsma, Anselmo, PT Acute pain of left knee (Primary Dx); Abnormality of gait and mobility 07/27/2023 Scanned Document [employer] [facility] [place] [address] [place] [address] Sheryl Boudreaux RN 07/26/2023 Telephone [employer] [facility] [place] [address] [place] [address] Uziel Mccauley MA 07/20/2023 11:00 AM CDT Telemedicine [employer] [facility] [place] [address] [place] [address] Beverly Hargrove NP Erectile dysfunction, unspecified erectile dysfunction type (Primary Dx) 07/19/2023 10:15 AM CDT Office Visit [employer] [facility] [place] [address] [place] [address] Nicole Reyes, JAMES Combined forms of age-related cataract of both eyes (Primary Dx); Hyperopia of both eyes with astigmatism and presbyopia; Dry eyes 06/26/2023 Orders Only [employer] [facility] [place] [address] [place] [phone] Beverly Hargrove NP 06/22/2023 8:00 AM CDT Office Visit [employer] [facility] [place] [address] [place] [address] Beverly Hargrove, AMBER Encounter for preventative adult health care examination [...] Cataracts Brother Lauro Other Daughter 1 Kristyn teatrology of f allow as Lung disease Daughter [...] 06/22/2023 7:53 AM CDT Plan of Treatment Upcoming Encounters Date Type Department Care Team (Late st Contact Info) Description 08/24/2023 8:30 AM CDT Treatment [facility] [place] [address] [place] [address] Anselmo Sanchez, PT [address] [place] [address] Health Maintenance Due Date Last Done Comments Influenza Immunization (Season Ended) 2023 Dental Cleaning/Exam 04/05/2024 Postpon ed from 1960 (Awaiting appt) Colorectal Cancer Screening 06/19/2024 06/19/2021 Annual Preventive Exam 06/21/2024 , 06/22/2023 Covid-19 Immunization ( season) 2024 03/04/2021, 07/14/2020, 06/16/2020 Postponed from 11/17/2022 (Member Refused) RSV Immunization >= 60 yrs old (1 - 1-dose 60+ series) 06/21/2024 Postponed fr om 2020 (Member Refused) Zoster Immunization (1 of 2) 06/21/2024 Postponed from 2010 (Member Refused) Tetanus (Tdap or Td) Immunization 12/15/2028 12/15/2018, 09/05/2017 HIV Screening Addressed 09/05/2017 Overridden wit h the intention of not completing the [...] Results * Testosterone Total Male - [facility]DLS (20988) (06/22/2023 8:34 AM CDT) Testosterone 428 250 - 827 ng/dL [facility] Blood (Blood, Venous) 06/22/2023 8:34 AM CDT 06/23/2023 4:16 AM CDT Beverly Hargrove FAITH HEALER LAB BLOOD ORDERABLES Performing Organization Address City/[facility]/ZIP Co de Phone Number [facility] [address] [place] [address] * FSH and LH, Serum (24707,22687) (06/22/2023 8:34 AM CDT) Follicle Stimulating Hormone 2.5 1.4 - 12.8 mIU/mL [facility] Luteinizing Hormone 4.1 1.6 - 15.2 mIU/mL [facility] Blood (Blood, Venous) 06/22/2023 8:34 AM CDT 06/23/2023 4:16 AM CDT Beverly Hargrove FAITH HEALER LAB BLOOD ORDERABLES Performing Organization Address [facility] Co de Phone Number [facility] [address] [place] [address] * Cortisol AM (68719) (06/22/2023 8:34 AM CDT) Cortisol - AM 18.7 mcg/dL [facility] Comment: Reference Range 8 a.m. (7-9 a.m.) Specimen: 4.0-22.0 Blood (Blood, Venous) 06/22/2023 8:34 AM CDT 06/23/2023 4:16 AM CDT Beverly Hargrove FAITH HEALER LAB BLOOD ORDERABLES [facility] [address] [place] [address] * Vitamin D 25-Hydroxy Total (74815) ([facility] [address]9860,[place] [id number],DLS 6556) (06/22/2023 8:34 AM CDT) Vit D, 25-Hydroxy 69 30 - 100 ng/mL [facility] Comment: Vitamin D Status ? 25-OH Vitamin D: Deficiency: ?<20 ng/mL Insufficiency: ? 20 - 29 ng/mL Optimal: ? > or = 30 ng/mL For 25-OH Vitamin D testing on patients on D2-supplementation and patients for whom quantitation of D2 and D3 fractions is required, the QuestAssureD(TM) 25-OH VIT D, (D2,D3), LC/MS/MS is recommended: order code 48208 (patients >2yrs). See Note 1 Note 1 For additional information, please refer to http://education.DevonWay/faq/PEO110 (This link is being provided for informational/ educational purposes only.) Blood (Blood, Venous) 06/22/2023 8:34 AM CDT 06/23/2023 4:16 AM CDT Beverly Hargrove NP LAB BLOOD ORDERABLES Performing Organization Address City/[facility]/ZIP Co de Phone Number [facility] [address] [place] [address] * Prolactin, Serum (75564) (06/22/2023 8:34 AM CDT) Prolactin 9.8 2.0 - 18.0 ng/mL [facility] Blood (Blood, Venous) 06/22/2023 8:34 AM CDT 06/23/2023 4:16 AM CDT Beverly Hargrove FAITH HEALER LAB BLOOD ORDERABLES Performing Organization Address City/[facility]/ZIP Co de Phone Number [facility] [address] [place] [address] * CBC Complete blood count without diff (34988) (06/22/2023 8:34 AM CDT) Auto WBC 4.3 [...] Beverly Hargrove NP LAB BLOOD ORDERABLES [facility] [address] [place] [address] * PSA Prostate Specific Antigen Total (61020) (06/22/2023 8:34 AM CDT) Pathologist [facility] PSA 0.50 < OR = 4.00 ng/mL [facility] Comment: The total PSA value from this assay system is standardized against the WHO standard. The test result will be approximately 20% lower when compared to the equimolar-standardized total PSA ([place]). Comparison of serial PSA results should be [...] NP LAB BLOOD ORDERABLES Performing Organization Address City/State/[facility] Co de Phone Number JACEY [facility] [address] [place] [address] * Hgb A1C Hemoglobin Glycosylated (91052) (06/22/2023 8:34 AM CDT) Hemoglobin A1C 5.4 <5.7 % of total Hgb [facility] Comment: For the purpose of screening for the presence of diabetes: <5.7% ? Consistent with the absence of diabetes 5.7-6.4% ?Consistent with increased risk for diabetes ?(prediabetes) > or =6.5% ??Consistent with diabetes This assay result is consistent with a decreased risk of diabetes. Currently, no consensus exists regarding use of hemoglobin A1c for diagnosis of diabetes in children. According to [place] Diabetes Association (ADA) guidelines, hemoglobin A1c <7.0% represents optimal control in non- diabetic patients. Different metrics may apply to specific patient populations. Standards of Medical Care in Diabetes(ADA). ? This test was performed on the Ros abel c503 platform. Effective 05/23/23, a change in test platforms from the [employer] to the Ros abel c503 may have shifted HbA1c results compared to historical results. Based on laboratory validation testing conducted at [facility], the Ros platform relative to the [employer] [...] 8:34 AM CDT 06/23/2023 4:16 AM CDT Bevelry Hargrove NP LAB BLOOD ORDERABLES [facility] [address] [place] [address] * (ABNORMAL) Lipid panel (27333) (06/22/2023 8:34 AM CDT) Cholesterol 252(H) <200 mg/dL [facility] Total HDL-C Direct 74 > OR = 40 mg/dL [facility] Triglycerides 112 <150 mg/dL [facility] LDL Calculated 155(H) mg/dL (calc) [facility] Comment: Reference range: <100 Desirable range <100 mg/dL for primary prevention; ?? <70 mg/dL for patients with CHD or diabetic patients with > or = 2 CHD risk factors. LDL-C is now calculated using the Joanne calculation, which is a validated novel method providing better accuracy than the Friedewald equation in the estimation of LDL-C. Moose ORTIZ et al. ROBERTO. 2013;310(19): 0262-3869 (http://education.DevonWay/faq/OEJ293) Chol/HDL Ratio 3.4 <5.0 (calc) [facility] Non HDL Chol. (LDL+VLDL) 178(H) <130 mg/dL (calc) [facility] Comment: For patients with diabetes plus 1 major ASCVD risk factor, treating to a non-HDL-C goal of <100 mg/dL (LDL-C of <70 mg/dL) is considered a therapeutic option. Blood (Blood, Venous) 06/22/2023 8:34 AM CDT 06/23/2023 4:16 AM CDT Beverly Hargrove NP LAB BLOOD ORDERABLES [facility] [address] [place] [address] * (ABNORMAL) Comprehensive metabolic panel CMP (74072) (06/22/2023 8:34 AM CDT) Glucose 99 65 - 99 mg/dL [facility] Comment: ? Fasting reference interval BUN 14 7 - 25 mg/dL [facility] Creatinine 1.07 0.70 - 1.35 mg/dL [facility] eGFR 78 > OR = 60 mL/min/1. 73m2 [facility] BUN/Creatinine Ratio SEE NOTE: 6 - (calc) [facility] Comment: ?? [...] Beverly Hargrove NP LAB BLOOD ORDERABLES [facility] [address] [place] [address] from Last 3 Months Care Teams Music Composition Teacher Relationship Specialty Start Date End Date Jean-Pierre Freeman MD [address] [facility] [address] [place] [phone] PCP - General Family Medicine 07/19/23
--- OUTSIDE RECORDS SUMMARY | 2023-08-22 06:04 | XMS_ITS | Encounter Summary ---
Author Organization [facility] Address [address] [place], [place] [address] Phone [email or web address] Care Team Providers Care Media Production Support Manager Name Role Phone Golden Pfeiffer MD Primary Care Provider Unavaila ble Reason for Visit * Reason Comments Annual Physical Exam Encounter Details Date Type Department Care Team (Late st Contact Info) Description 06/22/2023 8:00 AM CDT Office Visit [facility] [place] [address] [place] [address] Beverly Hargrove NP [address] [place] [address] Encounter for preventative adult health [...] done 1-1.5 years ago. - Lipid panel (30549) - PSA Prostate Specific Antigen Total (76164) - CBC Complete blood count without diff (09313) - Comprehensive metabolic panel CMP (76345) - Hgb A1C Hemoglobin Glycosylated (35790) - Vitamin D 25-Hydroxy Total (08912) ([facility] 35490,[place] 012133,DLS 6556) 2. Ventral hernia without obstruction or [...] not - Testosterone Total Male - [facility]/DLS (37072) - FSH and LH, Serum (92129,51695) - Prolactin, Serum (91075) - Cortisol AM (52507) 5. Erectile dysfunction, unspecified erectile dysfunction type [...] a 63 y.o. male presents to the [facility] 06/22/2023 for Fasting lab work orderedby [facility] provider . Labs drawn via left arm [...] get your opinion. Thank you, DANGELO Watkins ScanScout * Beverly Hargrove NP - 06/22/2023 8:00 [...] any other questions. Thank you, DANGELO Watkins ScanScout * Beverly Hargrove NP - 06/22/2023 8:00 AM CDT Stephen Hastings Cortisol is normal. Thank you, DANGELO Watkins ScanScout documented in this encounter Plan of Treatment Upcoming Encounters Date Type Department Care Team (Late st Contact Info) Description 08/24/2023 8:30 AM CDT Treatment [facility] [place] [address] [place] [address] Anselmo Sanchez, PT [address] [place] [address] documented as of this encounter Procedures Procedure [...] in this encounter Results * Cortisol AM (67283) (06/22/2023 8:34 AM CDT) Cortisol - AM 18.7 mcg/dL [facility] Comment: Reference Range 8 a.m. (7-9 a.m.) Specimen: 4.0-22.0 Blood (Blood, Venous) 06/22/2023 8:34 AM CDT 06/23/2023 4:16 AM CDT Beverly Desirnieves TAR PROCESSING TECHNICIAN LAB BLOOD ORDERABLES Performing Organization Address [facility] Co de Phone Number QUEST [facility] [address] [place] [address] * Prolactin, Serum (96347) (06/22/2023 8:34 AM CDT) Prolactin 9.8 2.0 - 18.0 ng/mL [facility] Blood (Blood, Venous) 06/22/2023 8:34 AM CDT 06/23/2023 4:16 AM CDT Beverly Desirnieves TAR PROCESSING TECHNICIAN LAB BLOOD ORDERABLES Performing Organization Address [facility] de Phone Number QUEST [facility]lass [address] [place] [address] * FSH and LH, Serum (18395,59448) (06/22/2023 8:34 AM CDT) Follicle Stimulating Hormone 2.5 1.4 - 12.8 mIU/mL [facility] Luteinizing Hormone 4.1 1.6 - 15.2 mIU/mL [facility] Blood (Blood, Venous) 06/22/2023 8:34 AM CDT 06/23/2023 4:16 AM CDT Beverly Desirnieves TAR PROCESSING TECHNICIAN LAB BLOOD ORDERABLES Performing Organization Address [facility] Co de Phone Number QUEST [facility] [address] [place] [address] * Testosterone Total Male - [facility]/DLS (99205) (06/22/2023 8:34 AM CDT) Pathologist [facility] Testosterone 428 250 - 827 ng/dL [facility] james Douglass Blood (Blood, Venous) 06/22/2023 8:34 AM CDT 06/23/2023 4:16 AM CDT Beverly Hargrove TAR PROCESSING TECHNICIAN LAB BLOOD ORDERABLES Performing Organization Address [facility] de Phone Number QUEST [facility] [address] [place] [address] * Vitamin D 25-Hydroxy Total (35929) ([facility] 67769,[place] 832803,DLS 6556) (06/22/2023 8:34 AM CDT) [facility] Vit D, 25-Hydroxy 69 30 - 100 ng/mL [facility]- wesjames Douglass Comment: Vitamin D Status ? 25-OH Vitamin D: Deficiency: ?<20 ng/mL Insufficiency: ? 20 - 29 ng/mL Optimal: ? > or = 30 ng/mL For 25-OH Vitamin D testing on patients on D2-supplementation and patients for whom quantitation of D2 and D3 fractions is required, the QuestAssureD() 25-OH VIT D, (D2,D3), LC/MS/MS is recommended: order code 29357 (patients >2yrs). See Note 1 Note 1 For additional information, please refer to http://education.Viableware.Memolane/faq/DXI279 (This link is being provided for informational/ educational purposes only.) Blood (Blood, Venous) 06/22/2023 8:34 AM CDT 06/23/2023 4:16 AM CDT Beverly Hargrove TAR PROCESSING TECHNICIAN LAB BLOOD ORDERABLES JACEY [facility]lass [address] [place] [address] * Hgb A1C Hemoglobin Glycosylated (38226) (06/22/2023 8:34 AM CDT) [facility] Hemoglobin A1C 5.4 <5.7 % of total Hgb [facility] Douglass Comment: For the purpose of screening for the presence of diabetes: <5.7% ? Consistent with the absence of diabetes 5.7-6.4% ?Consistent with increased risk for diabetes ?(prediabetes) > or =6.5% ??Consistent with diabetes This assay result is consistent with a decreased risk of diabetes. Currently, no consensus exists regarding use of hemoglobin A1c for diagnosis of diabetes in children. According to [place] Diabetes Association (ADA) guidelines, hemoglobin A1c <7.0% represents optimal control in non- diabetic patients. Different metrics may apply to specific patient populations. Standards of Medical Care in Diabetes(ADA). ? This test was performed on the Ros abel c503 platform. Effective 05/23/23, a change in test platforms from the Caba Cellophane Bag Machine Operator to the Ros abel c503 may have shifted HbA1c results compared to historical results. Based on laboratory validation testing conducted at [facility], the Ros platform relative to the Caba [...] Beverly Hargrove NP LAB BLOOD ORDERABLES JACEY [facility] Douglass [address] [place] [address] * (ABNORMAL) Comprehensive metabolic panel CMP (59297) (06/22/2023 8:34 AM CDT) Pathologist [facility] Glucose 99 65 - 99 mg/dL [facility] Comment: ? Fasting reference interval BUN 14 7 - 25 mg/dL [facility] Creatinine 1.07 0.70 - 1.35 mg/dL [facility] eGFR 78 > OR = 60 mL/min/1. 73m2 [facility] BUN/Creatinine Ratio SEE NOTE: 6 (calc) [facility] Comment: ?? [...] Beverly Hargrove NP LAB BLOOD ORDERABLES JACEY [facility] [address] [place] [address] * CBC Complete blood count without diff (26499) (06/22/2023 8:34 AM CDT) Auto WBC 4.3 [...] Beverly Hargrove NP LAB BLOOD ORDERABLES [facility]acey Douglass [address] [place] [address] * PSA Prostate Specific Antigen Total (42941) (06/22/2023 8:34 AM CDT) Pathologist [facility] PSA 0.50 < OR = 4.00 ng/mL [facility] Comment: The total PSA value from this assay system is standardized against the WHO standard. The test result will be approximately 20% lower when compared to the equimolar-standardized total PSA (Ruiz Renetta). Comparison of serial PSA results should be [...] NP LAB BLOOD ORDERABLES Performing Organization Address City/[facility]/ZIP Co de Phone Number JACEY [facility] Douglass [address] [place] [address] * (ABNORMAL) Lipid panel (82020) (06/22/2023 8:34 AM CDT) Cholesterol 252(H) <200 mg/dL [facility] [facility] Total HDL-C Direct 74 > OR = 40 mg/dL [facility] Triglycerides 112 <150 mg/dL [facility] LDL Calculated 155(H) mg/dL (calc) [facility] ojames Douglass Comment: Reference range: <100 Desirable range <100 mg/dL for primary prevention; ?? <70 mg/dL for patients with CHD or diabetic patients with > or = 2 CHD risk factors. LDL-C is now calculated using the Joanne calculation, which is a validated novel method providing better accuracy than the Friedewald equation in the estimation of LDL-C. Moose SS et al. ROBERTO. 2013;310(19): 7565-3352 (http://education.Viableware.Memolane/faq/XNH509) Chol/HDL Ratio 3.4 <5.0 (calc) [facility] ojames Douglass Non HDL Chol. (LDL+VLDL) 178(H) <130 mg/dL (calc) [facility] Comment: For patients with diabetes plus 1 major ASCVD risk factor, treating to a non-HDL-C goal of <100 mg/dL (LDL-C of <70 mg/dL) is considered a therapeutic option. Blood (Blood, Venous) 06/22/2023 8:34 AM CDT 06/23/2023 4:16 AM CDT Beverly Hargrove NP LAB BLOOD ORDERABLES Performing Organization Address City/[facility]/ZIP Co de Phone Number [facility] Douglass [address] [place] [address] documented in this encounter Visit Diagnoses Diagnosis [...] behavior documented in this encounter Care Teams Media Production Support Manager Relationship Specialty Start Date End [place] [address] PCP - General General Surgery 06/08/23 07/18/23 documented as of this encounter
--- OUTSIDE RECORDS SUMMARY | 2023-08-22 06:04 | XMS_ITS | Encounter Summary ---
Author Organization [facility] Address [address] [place], [place] [address] Phone [email or web address] Care Team Providers Care Cut Roll Machine Offbearer Name Role Phone Jean-Pierre Freeman MD Primary Care Provider Reason for Referral * Consultation (Routine) - Closed Specialty Diagnoses / Procedures Referred By Marlene pickett Referred To Contact Optometry / Vision Diagnoses Hyperopia of both eyes with astigmatism and presbyopia Procedures Vendor Referral to Optometry Nicole Reyes, OD [address] [place] [address] Nicole Reyes, OD [address] [place] [address] Referral ID Status Reason Start Date Expiration Date V isits Requested Visits Authorized [id number] Closed Consult & Treat 07/19/2023 01/15/2024 1 1 Reason for Visit * Reason Comments Eye Exam Encounter Details Date Type Department Care Team (Late st Contact Info) Description 07/19/2023 10:15 AM CDT [facility] [place] [facility] [place] [address] [place] [address] Nicole Reyes, OD [address] [place] [address] Combined forms of age-related cataract [...] 18 Wearing Rx Wearing Rx Sphere Cylinder [place] Add Right +1.50 -0.75 095 +2.50 Left +1.25 -0.50 050 +2.50 Manifest Refraction Manifest Refraction Sphere Cylinder [place] Dist VA Add Near VA Right +1.75 -0.50 115 20/20-2 +2.50 J1+ Left +1.50 -0.50 045 20/25 +2.50 J1+ Eyeglass Final Rx Eyeglass Final Rx Sphere Cylinder [place] Dist VA Add Near VA Right +1.75 [...] 8:30 AM CDT Treatment [facility] & [facility] [place] [address] [place] [address] Anselmo Sanchez, PT [address] [place] [address] documented as of this encounter Visit Diagnoses Diagnosis Combined forms of age-related cataract of both eyes- Primary Hyperopia of both eyes with astigmatism and presbyopia Dry eyes Unspecified tear film insufficiency documented in this encounter Care Teams Cut Roll Machine Offbearer Relationship Specialty Start Date End Date Jean-Pierre Freeman MD [address] [place] [address] PCP - General Family Medicine 07/19/23 documented as of this encounter
--- OUTSIDE RECORDS SUMMARY | 2023-08-22 06:04 | XMS_ITS | Encounter Summary ---
Author Organization [facility] Address [address] [place], [place] [address] Phone [email or web address] Care Team Providers Care Senior Systems Analyst Name Role Phone Jean-Pierre Freeman MD Primary Care Provider [phone] Reason for Visit * Reason Comments Knee Impairment MSK Encounter Details Date Type Department Care Team (Late st Contact Info) Description 08/14/2023 10:30 AM CDT Treatment [facility] [place] [address] [place] [address] Anselmo Sanchez, PT [address] [place] [address] Acute pain of left knee (Primary Dx); Abnormality of gait and mobility Social History Tobacco Use Types Packs/Day Years [...] on file documented as of this encounter Patient Instructions * Patient Instructions* Anselmo Sanchez PT - 08/14/2023 10:30 AM CDT Please continue working on your exercises at home until our next session. If any questions or concerns come up before then, please don't hesitate to reach out. documented in this encounter Progress Notes * Anselmo Sanchez, PT - 08/14/2023 10:30 AM CDT Physical Therapy Musculoskeletal Treatment Name: Venkata Huynh : 1960 Date: 08/14/2023 Referring Provider (if applicable): Visit Count: 2 Subjective Knee has improved significantly since last seen. Knee slide exercise pt can bend their L knee as much as they can bend their R one. Is walking around better now, was able to work out in shed, climb ladders, do a lot more now. Is going crazy trying to get everything they can done before their surgery since they know they'll be laid up for a bit. Objective PT MSK Treatment Flowsheet: 08/14/23 1000 Exercises - Equipment Recumbent Bike (min) 5 minutes (Level 4) Exercises - Knee Knee - Exercise 1 Seated quad set x15 L 5s holds Knee - Exercise 2 Seated HS curls x20 L green tb Knee - Exercise 3 Standing terminal knee ext x15 L 5s holds green tb Knee - Exercise 4 Step ups and lateral step ups x20 each leading L Knee - Exercise 5 Single leg HS stretch on table, ankle propped on towel, x90s L Exercises - Knee - Total Time 25 minutes Exercises - Ankle Ankle - Exercise 1 Single leg calf stretch on step x90s L Exercises - Ankle - Total Time 5 minutes Exercises - Additional Exercise 1 Prone quad stretch with strap x90s L Exercises - Additional - Total Time 5 minutes $ Exercises - Total Time/Charge Exercises Total Time (lavon) 40 $ Exercises Charge (38-52 min), 3 Units Y Therapeutic Activities Therapeutic Activities - 1 Discussed upcoming surgery and provided recs regarding end of PT and time between now and surgery Therapeutic Activities - Total Time 5 minutes HEP: Access Code: [email or web address] URL: [email or web address] Date: 08/14/2023 Prepared by: Dr. Grey Sanchez Exercises - Supine Heel Slide with Strap - 1 x daily - 7 x weekly - 1 sets - 15 reps - 5 s hold - Seated Quad Set - 1 x daily - 7 x weekly - 1 sets - 12 reps - 5 s hold - Prone Knee Extension Overpressure - 1 x daily - 7 x weekly - 1 sets - 10-15 min hold - Standing Terminal Knee Extension with Resistance - 1 x daily - 7 x weekly - 1 sets - 12 reps - 5 s hold - Step Up - 1 x daily - 7 x weekly - 1 sets - 20 reps - Lateral Step Up - 1 x daily - 7 x weekly - 1 sets - 20 reps - Seated Table Hamstring Stretch - 1 x daily - 7 x weekly - 1 sets - 60-90 s hold - Prone Quad Stretch with Towel Roll and Strap - 1 x daily - 7 x weekly - 1 sets - 90 s hold - Gastroc Stretch on Step - 1 x daily - 7 x weekly - 1 sets - 90 s hold Assessment/Plan: Diagnoses and all orders for this visit: Acute pain of left knee Abnormality of gait and mobility Knee ROM and tolerance to activity has improved since last seen, but is still lacking significant knee ext ROM. Stressed importance of optimizing mobility and strength prior to surgery and recommended pt focus on knee ext stretches and exercises that will help restore that ROM over the next week prior to their surgery. Otherwise updated HEP with more exercises for pt to continue working on, instructed pt to stop backin or call with any questions or concerns that may come up going into their surgery, and will be seeing pt 23 August s/p L ACL reconstruction surgery. Clinician: Anselmo Sanchez PT documented in this encounter Plan of Treatment Upcoming Encounters Date Type Department Care Team (Late st Contact Info) Description 08/24/2023 8:30 AM CDT Treatment [facility] [place] [address] [place] [address] Anselmo Sanchez, PT [address] [place] [address] documented as of this encounter Visit Diagnoses Diagnosis Acute pain of left knee- Primary Abnormality of gait and mobility documented in this encounter Care Teams Senior Systems Analyst Relationship Specialty Start Date End Date Jean-Pierre Freeman MD [address] [place] [address] PCP - General Family Medicine 07/19/23 documented as of this encounter
--- OUTSIDE RECORDS SUMMARY | 2023-08-22 06:04 | XMS_ITS | Encounter Summary ---
Author Organization [facility] Address [address] [place], [place] [address] Phone [email or web address] Care Team Providers Care Binder Caser Name Role Phone Jean-Pierre Freeman MD Primary Care Provider [phone] Encounter Details Date Type Department Care Team (Late st Contact Info) Description 07/26/2023 Telephone [facility] [address] [place] [address] Uziel Mccauley MA [address] [place] [address] Social History Tobacco Use Types [...] on file documented as of this encounter Miscellaneous Notes * Telephone Encounter - Uziel Mccauley MA - 07/26/2023 9:38 AM CDT Called to notify Mack Juan is ready to be picked up. documented in this encounter Plan of Treatment Upcoming Encounters Date Type Department Care Team (Late st Contact Info) Description 08/24/2023 8:30 AM CDT Treatment [facility] [address] [place] [address] Anselmo Sanchez, PT [address] [place] [address] documented as of this encounter Visit Diagnoses Not on filedocumented in this encounter Care Teams Binder Caser Relationship Specialty Start Date End Date Jean-Pierre Freeman MD [address] [place] [address] PCP - General Family Medicine 07/19/23 documented as of this encounter
--- OUTSIDE RECORDS SUMMARY | 2023-08-22 06:04 | XMS_ITS | Encounter Summary ---
Author Organization [facility] Address [address] [place] [address] Phone [email or web address] Care Team Providers Care Ladle Liner Name Role Phone Jean-Pierre Freeman MD Primary Care Provider [phone] Reason for Visit * Reason Comments Knee Impairment MSK Encounter Details Date Type Department Care Team (Late st Contact Info) Description 08/09/2023 8:15 AM CDT Treatment [employer] [facility] [place] [address] [place] [address] Anselmo Sanchez, PT [address] [place] [address] Acute pain of left knee [...] encounter Patient Instructions * Patient Instructions* Anselmo Sanchez, PT - 08/09/2023 8:15 AM CDT Mack, it was so great meeting you today. Please get started on those exercises I shared with you, make sure you're doing them at least once a day, and I'll be looking forward to checking in with you next week at your next appointment with me. documented in this encounter Progress Notes * Anselmo Sanchez PT - 08/09/2023 8:15 AM CDT Physical Therapy Initial Evaluation Patient Name: Venkata Huynh Patient : 1960 Referring Provider (if applicable): Today's Date: 08/09/2023 Visit Count: 1 Subjective Pt presenting today with torn ACL L, had torn it 21 July. Pt was playing softball with grandkids, had jumped for the ball, landed funny, heard a popping sound, and that was it. Initially knee had swelled up, had to use crutches to amb. Went and had knee looked at, had imaging done, revealed torn ACL, MCL injury, and potential tibia fx vs bone bruise. Discussed non-operative vs surgical approach for torn ACL, pt chose to go surgical route. Ortho referred pt to PT to work on mobility and strength to improve outcomes post-op. Informed pt that they can perform activities as tolerated up until surgery 21 August. Pt is active, does a lot of work on house, yard, playing with grandkids, hunting, foraging for mushrooms. Pt's goals retirement is to be able to return to all their usual activities. Objective Active Range of Motion Left Knee Flexion: 120 degrees Extension: Left knee active extension: Lacking 20 deg ext. with pain Right Knee Flexion: 132 degrees Extension: 2 degrees Additional Active Range of Motion Details Very robotic movement going into L knee flex and ext. Feels very stiff, no more motion available. Strength/Myotome Testing Left Hip Planes of Motion Flexion: 4- Abduction: 4 Adduction: 4+ Right Hip Planes of Motion Flexion: 4+ Abduction: 4 Adduction: 4+ External rotation: 4 Internal rotation: 5 Left Knee Flexion: 3+ Extension: 3+ Right Knee Flexion: 4+ Extension: 4+ Additional Strength Details Ankle and foot strength normal alexsander. Pain with both resisted ext and flex L knee No past medical history on file. Past Surgical History: Procedure Laterality Date CIRCUMCISION 1960 TENOPLASTY Left 1975 Left thumb Outcome Measure Scores: Outcome Measure Scores FOTO Functional Score: 65 FOTO Risk Adjusted Score: 57 Today's Treatment: 08/09/23 0900 Exercises - Knee Knee - Exercise 1 Supine heel slides x5 L 5s holds Knee - Exercise 2 Long-sitting quad set with ankle propped up on towel x5 L 5s holds Knee - Exercise 3 Seated LAQ x5 L 5s holds Knee - Exercise 4 Prone lower leg hang for knee ext ROM x30s L Exercises - Knee - Total Time 23 minutes $ Exercises - Total Time/Charge Exercises Total Time (lavon) 23 $ Exercises Charge (23-37 min), 2 Units Y Home Exercise Program Access Code: [email or web address] URL: [email or web address] Date: 08/09/2023 Prepared by: Dr. Grey Sanchez Exercises - Supine Heel Slide with Strap - 1 x daily - 7 x weekly - 1 sets - 15 reps - 5 s hold - Quad Setting and Stretching - 1 x daily - 7 x weekly - 1 sets - 15 reps - 5 s hold - Seated Long Arc Quad - 1 x daily - 7 x weekly - 1 sets - 20-30 reps - 5 s hold - Prone Knee Extension Overpressure - 1 x daily - 7 x weekly - 1 sets - 10-15 min hold Assessment ICD-10-CM ICD-9-CM 1. Acute pain of left knee M25.562 719.46 2. Abnormality of gait and mobility R26.9 781.2 Assessment & Plan Assessment Impairments: abnormal gait, abnormal or restricted ROM, activity intolerance, impaired balance, impaired physical strength, lacks appropriate home exercise program, pain with function, safety issue and weight-bearing intolerance Assessment details: Pt is a 63 yo male presenting to PT with c/o acute L knee pain as a result of torn ACL, MCL injury, and potential tibia fx. Pt has ACL repair scheduled for 21 August and is seeing this PT for pre-op rehab to improve outcomes s/p ACL repair. Pt demoed fair flex of L knee today, butext was significantly impaired, lacking 20 deg from neutral. Pt able to actively contract quads, but strength of both quads and hamstrings limited due to pain. Hip strength fair with only relative weakness in certain directions. Ankle and foot strength strong alexsander without pain or issue. Provided pt with exercises focused on quad activation and knee ext ROM and will follow up one additional time to assess progress and update HEP prior to pt's surgery. Prognosis: good Prognosis details: Pt demos good potential to improve with PT as indicated by PLOF, active lifestyle, is motivated to improve, has realistic goals, has good support at home, and is agreeable to recs provided by PT. Goals In 1 week, pt will be ind with robust HEP to address impairments seen at [facility] today in order to optimize L knee function prior to surgery. In 2 weeks, pt will be able to ext L knee to neutral to demo more normal L knee ROM prior to surgery Plan Therapy options: will be seen for skilled physical therapy services Planned therapy interventions: home exercise program, strengthening, stretching and therapeutic activities Frequency: 1x week Duration in visits: 2 Treatment plan discussed with: patient Plan details: Plan to see pt one additional time to assess progress and review and update HEP as indicated prior to pt's surgery. Will then be seeing pt after surgery for rehab following ACL repair Clinician: Anselmo Sanchez PT documented in this encounter Plan of Treatment Upcoming Encounters Date Type Department Care Team (Late st Contact Info) Description 08/24/2023 8:30 AM CDT Treatment [employer] [facility] [place] [address] [place] [address] Anselmo Sanchez, PT [address] [place] [address] documented as of this encounter Visit Diagnoses Diagnosis Acute pain of left knee- Primary Abnormality of gait and mobility documented in this encounter Care Teams Ladle Liner Relationship Specialty Start Date End Date Jean-Pierre Freeman MD [address] [place] [phone] PCP - General Family Medicine 07/19/23 documented as of this encounter
--- OUTSIDE RECORDS SUMMARY | 2023-08-22 06:04 | XMS_ITS | Encounter Summary ---
Author Organization [facility] Address [address] [place] [address] Phone [email or web address] [email or web address] Care Team Providers Care Mold Mover Name Role Phone Jean-Pierre Freeman MD Primary Care Provider [phone] Reason for Visit * Reason Comments Genital / Male Issue Follow up on Cialis . Encounter Details Date Type Department Care Team (Late st Contact Info) Description 07/20/2023 11:00 AM CDT Telemedicine [facility] [facility] [place] [address] [place] [address] Beverly Hargrove NP [address] [place] [address] Erectile dysfunction, unspecified erectile dysfunction [...] CDT Local Virtual Health Note Provider location: [place] [employer] [facility] they are currently in the [facility] Member [facility] they are an employee of [employer]. Subjective: Venkata Huynh is a 63 y.o. [...] time spent with member: 10min Beverly Hargrove NP-C [facility] documented in this encounter Plan of Treatment Upcoming Encounters Date Type Department Care Team (Late st Contact Info) Description 08/24/2023 8:30 AM CDT [facility] [place] [address] [place] [address] Anselmo Sanchez, PT [address] [place] [address] documented as of this encounter Visit Diagnoses Diagnosis Erectile dysfunction, unspecified erectile dysfunction type- Primary documented in this encounter Care Teams Mold Mover Relationship Specialty Start Date End Date Jean-Pierre Freeman MD [address] [place] [address] PCP - General Family Medicine 07/19/23 documented as of this encounter
--- OUTSIDE RECORDS SUMMARY | 2023-08-22 06:04 | XMS_ITS | Encounter Summary ---
Author Organization [facility] Address [address] [place] [address] Phone [email or web address] [email or web address] Care Team Providers Care Casino Floor Person Name Role Phone Golden Pfeiffer MD Primary Care Provider Willow cobb Encounter Details Date Type Department Care Team (Late st Contact Info) Description 06/26/2023 Orders Only [employer] [facility] [place] [address] [facility] [address] [place] [address] Beverly Hargrove, RELIEF WORKER [address] [place] [address] Social History Tobacco Use Types [...] as of this encounter Plan of Treatment Upcoming Encounters Date Type Department Care Team (Late st Contact Info) Description 08/24/2023 8:30 AM CDT Treatment [employer] [facility] [place] [address] [place] [address] Anselmo Sanchez, PT [address] [place] [address] documented as of this encounter Visit Diagnoses Not on filedocumented in this encounter Care Teams Casino Floor Person Relationship Specialty Start [place] [address] PCP - General General Surgery 06/08/23 07/18/23 documented as of this encounter
--- OUTSIDE RECORDS SUMMARY | 2023-08-22 06:04 | XMS_ITS | Encounter Summary ---
Author Organization [facility] Address [address] [place], [place] [id number] Phone [email or web address] [email or web address] Care Team Providers Care Columnist Name Role Phone Jean-Pierre Freeman MD Primary Care Provider [phone] Encounter Details Date Type Department Care Team (Late st Contact Info) Description 07/27/2023 Scanned Document [employer] [facility] [address] [place] [address] Sheryl Boudreaux, SELVIN [address] [place] [address] Social History Tobacco Use Types Packs/Day Years [...] 8:30 AM CDT Treatment [employer] [facility] [place] [address] [place] [address] Anselmo Sanchez, PT [address] [place] [address] documented as of this encounter Visit Diagnoses Not on filedocumented in this encounter Care Teams Columnist Relationship Specialty Start Date End Date Jean-Pierre Freeman MD [address] [place] [address] PCP - General Family Medicine 07/19/23 documented as of this encounter
[2023-08-22] MEDS: LACTATED RINGERS 1000 ML 1,000 ML 100 ML IV ×2 (06:22→08:54)
[2023-08-22] MEDS: SODIUM CHLORIDE 0.9 % (FLUSH) 10 ML SYRINGE IVF (06:22)
[2023-08-22] MEDS: MIDAZOLAM HCL 1 MG/ML inj IVP (07:04)
[2023-08-22] MEDS: fentaNYL 100 MCG/2 ML inj IVP (07:04)
--- NOTE | 2023-08-22 07:04 | SUR.PREOP ---
TIME?OUT:?0703 PT/RN/MDA?VERIFICATION?OF?SURGICAL?SITE left knee,?PROCEDURE nerve block,?AND?CONSENT OBTAINED?PRIOR?TO?INVASIVE?PROCEDURE.
--- NOTE | 2023-08-22 07:10 | W.PM.H&PU ---
History & Physical Update History & Physical Update H&P Reviewed and patient assessed: No changes noted
--- NOTE | 2023-08-22 07:15 | CRLHL7_ITS ---
For Patients: As a result of the Cures Act, medical imaging exams and procedure reports are released immediately into your electronic medical record. You may view this report before your referring provider. If you have questions, please contact your health care provider. Indication: Intra op left knee ACL repair Technique: One fluoroscopic image of the left knee. Fluoroscopic time 6.5 seconds. IMPRESSION: Intraoperative fluoroscopic guidance for ACL reconstruction. Dictated by Jean-Pierre Boyer MD @ 08/23/2023 10:15:05 AM (Electronically Signed)
[2023-08-22] MEDS: CEFAZOLIN 2 GM in 0.9 % SODIUM CHLORIDE Mini-bag 100 ML IVPB (07:25)
--- NOTE | 2023-08-22 08:49 | PM.ORPRC ---
Procedure Note Date of procedure: 08/22/23 Procedure: PREOPERATIVE DIAGNOSIS: 1. Left knee ACL tear POSTOPERATIVE DIAGNOSIS: 1. Left knee ACL tear PROCEDURE: 1. Left knee arthroscopically assisted ACL reconstruction with graftlink allograft 2. 48839 - intraoperative fluoroscopy up to 1 hour. SURGEON: Kareem Almanzar M.D. BUSINESS EMPLOYMENT SPECIALIST: Quincy DUNAWAY; Adam Tripp PA-C. Of note, an virtual customer assistant was critical for this case to aid in patient positioning, knee manipulation, instrument exchange, and closure. ANESTHESIA: Spinal plus femoral nerve block EBL: 5 mL TOURNIQUET: 60 minutes at 300 torr IMPLANTS: Arthrex femoral tight rope button and tibial ABS button along with a backup on the tibial fixation with a 4.75 mm peek swivelock suture anchor & internal brace. COMPLICATIONS: None evident INDICATIONS: The patient is a pleasant 63-year-old male. They have experienced a left knee injury resulting in knee instability. MRI was obtained and confirmed complete ACL disruption, consistent with the physical exam. Given the findings, as well as the patient's desire to remain physically active with cutting/pivoting type activities, surgery was recommended. FINDINGS: Exam under anesthesia revealed positive Shiela's grade 2 B. Thud-clunk pivot shift. Stable posterior drawer. Stable to varus and valgus stress at 0 and 30?. The diagnostic arthroscopy showed full-thickness ACL disruption/tear on the proximal 1/3, not from the femoral attachment directly. The medial and lateral menisci appeared intact without disruption or tearing including the roots. 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 Lateral compartment showed healthy articular cartilage. Patella showed grade 2-3 chondromalacia median ridge. DESCRIPTION OF PROCEDURE: After a thorough discussion of risks, benefits, and alternatives, the patient was brought to the operating room and placed upon the operating table. Induction of anesthesia was undertaken as previously noted. 2 g IV Ancef was administered within 1 hr of incision preoperatively. (Of note, despite a reported penicillin allergy from his youth he appeared to tolerate this without adverse reaction.) Appropriate time-out was performed identifying proper patient, site, and procedure. The left lower extremity was prepped and draped in the appropriate sterile fashion using ChloraPrep. The limb was exsanguinated and tourniquet inflated. Anterolateral and anteromedial portals were established with an 11 blade, and a diagnostic arthroscopy was performed. This identified the findings as noted above. Following the diagnostic arthroscopy, we then turned our attention to the ACL reconstruction. The graft had been thawing on the back table inside the package in warm saline. Once this was properly thawed, it was prepared with the passing sutures and the femoral tight rope button. It was then placed on tension, and sized. It was approximately a 9.0 mm diameter graft. While the graft was being prepared, simultaneously, the remaining ACL stump was debrided with a combination of shaver and basket forceps. After evaluating the current fibers of the existing ACL stump, we drilled the tunnels in an independent manner for anatomic tunnel positioning. A 9 mm flip cutter was utilized for the femoral tunnel and for the tibial tunnel. After preparing the graft and drilling tunnels, the graft was passed without difficulty and the femoral button was directly visualized to exit the femoral tunnel and the button was flipped. C-arm fluoroscopic imaging confirmed proper flipping of the femoral button and was apposed against the femoral cortex. The knee was then cycled 35+ times with tension on the graft while holding the internal brace sutures to ensure that the button state apposed against the femoral cortex. The tibial ABS button was then placed, and the tibial sutures secured over this with the knee in full extension. The white sutures were tied over top of the button, and the internal brace sutures were secured with a 4.75 mm peek SwiveLock suture anchor. Excellent tension on the graft was achieved. A Shiela test was performed again, and found to be stable grade 1A. The graft was reprobed on the inside of the knee and again found to be taut and stable. At this stage, closure was performed with 2-0 Vicryl and 4-0 Monocryl to close the subcutaneous and subcuticular layers, respectively. Dressings were applied, tourniquet deflated, and the T scope hinged knee brace was applied. The patient was awoken from anesthesia and transferred to the PACU in stable condition. PLAN: 1. Toe-touch weightbear operative extremity until quad control is restored. Crutch / walker ambulation assistance PRN. May perform full weight-bearing when the brace is locked straight. Then unlock the brace when sedentary. 2. Ice, acetominophen and/or ibuprofen, and oxycodone for pain as needed. 3. Knee range of motion and quad sets/straight leg raise regularly 4. Follow up with PA visit in 1-2 weeks for a wound check.
--- NOTE | 2023-08-22 09:23 | W.ANESCHARGE ---
Anesthesia Charges Start Date/Time Anesthesia Start Date: 08/22/23 Anesthesia Start Time: 07:18 Stop Date/Time Anesthesia Stop Date: 08/22/23 Anesthesia Stop Time: 09:20
--- NOTE | 2023-08-22 09:35 | W.ANESCHARGE ---
Anesthesia Charges Start Date/Time Anesthesia Start Date: 08/22/23 Anesthesia Start Time: 07:18 Stop Date/Time Anesthesia Stop Date: 08/22/23 Anesthesia Stop Time: 09:20
--- NOTE | 2023-08-22 09:36 | W.PM.NB ---
Nerve Block Nerve Block Time Seen by Provider: 07:08 Date Seen: 08/22/23 Type of block requested by surgeon for post-operative analgesia: popliteal Side: right Time out performed: Yes Verification of patient name: Yes Verification of date of : Yes Site marking: site marked Name of person performing procedure: Александр Continuous monitoring Was continuous monitoring of O2 sat, B/P, cardiac sonographer, recorded every 15 minutes?: Yes Procedure Checklist: sterile prep, needles and gloves Ultrasound guided. Images saved: Yes Medications given in 5ml increments after negative aspiration: Marcaine %: 0.5 mL: 20 Needle gauge: 22 Patient tolerated procedure well: Yes Additional comments: Needle noted adjacent to nerve Block Charges Block Charge (with Pro Fee): Sciatic Nerve Use of Ultrasound Machine for Block: Yes- US Guidance/pain block
--- NOTE | 2023-08-22 09:37 | W.PM.NB ---
Nerve Block Nerve Block Time Seen by Provider: 07:08 Date Seen: 08/22/23 Type of block requested by surgeon for post-operative analgesia: femoral Side: right Time out performed: Yes Verification of patient name: Yes Verification of date of : Yes Site marking: site marked Name of person performing procedure: Александр Continuous monitoring Was continuous monitoring of O2 sat, B/P, color television console monitor, recorded every 15 minutes?: Yes Procedure Checklist: sterile prep, needles and gloves Ultrasound guided. Images saved: Yes Medications given in 5ml increments after negative aspiration: Ropivicaine %: 0.5 mL: 20 Needle gauge: 20 Patient tolerated procedure well: Yes Additional comments: Needle noted adjacent to nerve Block Charges Block Charge (with Pro Fee): Femoral Nerve Use of Ultrasound Machine for Block: Yes- US Guidance/pain block
== END 2023-08-22 12:03 | disposition home or self-care (01) ==
LOC: OR 06:02
PROVIDERS: PCP Internal Medicine; Visit Provider Orthopaedic Surgery Sports Medicine
PROC: (CPT 27428; principal; 2023-08-22 07:15)
DX: S83.512A Sprain of anterior cruciate ligament of left knee, initial encounter (principal); G89.18 Other acute postprocedural pain
CPT/HCPCS: 29888; 01400; 64445; 64447; 73560; 76000; 76942; C1713; J0665; J0690; J2250; J2405; J2704; J2795; J3010; J7120; L1833

== ENCOUNTER 2024-04-04 07:42 | Outpatient (CLI) | payer OTHER, SELFPAY ==
--- NOTE | 2024-04-04 08:00 | CRLHL7_ITS ---
For Patients: As a result of the Cures Act, medical imaging exams and procedure reports are released immediately into your electronic medical record. You may view this report before your referring provider. If you have questions, please contact your health care provider. Indication: Right hand pain, FALL 1 MONTH AGO, INTERMITTENT SWELLING OVER 3RD METAPHALAGEAL JOINT Technique: Right hand 2 views. Comparison: None Findings: The 3rd MCP joint is intact. No fracture or dislocation. Minimal degenerative arthrosis noted. No erosive changes. Impression: No fracture deformity. Dictated by Jean-Pierre Boyer MD @ 04/04/2024 8:46:12 AM (Electronically Signed)
== END 2024-04-04 07:43 | disposition home or self-care (01) ==
LOC: RAD 07:45
PROVIDERS: PCP Internal Medicine; Visit Provider Nurse Practitioner Family
DX: M79.641 Pain in right hand (principal)
CPT/HCPCS: 73120